=== PATIENT | female | born 1970 | race Caucasian/White ===

== ENCOUNTER → 2017-05-01 | Outpatient (CLI) | payer OTHER ==
--- NOTE | 2017-05-02 11:37 | Diagnostic Imaging Report ---
Thyroid scan and uptake Technique: After the oral administration of 203 ?Ci of I-123 capsule, 4 hour and 24-hour uptake is measured and plantar images over the thyroid gland obtained. Indication: Hyperthyroidism FINDINGS: Thyroid uptake at 4 hours is 94 %, and the at 24 hours is 100 %. Planar images demonstrate no evidence of a cold or hot nodule. There is prominent homogeneous uptake however. IMPRESSION: Severe hyperthyroidism with homogeneous uptake in the gland suggestive of Graves' disease. Dictated by: Dictated on workstation # [id number]
== END ==
LOC: CARD 10:35
PROVIDERS: ATTEND Family Medicine
DX: E05.00 Thyrotoxicosis with diffuse goiter without thyrotoxic crisis or storm (principal)
CPT/HCPCS: 78014

== ENCOUNTER 2020-02-29 14:28 | Outpatient (CLI) | payer OTHER | END 2020-02-29 15:40 | disposition home or self-care (01) | LOC: SLEEP 14:28 | PROVIDERS: ATTEND Nurse Practitioner | DX: G47.33 Obstructive sleep apnea (adult) (pediatric) (principal); I10 Essential (primary) hypertension ==